=== PATIENT | male | born 1935 | race Caucasian/White ===

== ENCOUNTER 2016-12-01 16:42 | Emergency (ER) | payer MEDICARE, OTHER ==
[2016-12-01 16:48] VITALS: BP 137/60; PULSE 75; RESP 18; TEMP 98.1
[2016-12-01] MEDS ORDERED: TRAM50TA PO (16:59)
[2016-12-01] MEDS ORDERED: LISI-515 PO (16:59)
[2016-12-01] MEDS ORDERED: SODIUM CHLOR 0.9% 1000 ML INJ 1,000 ML IV ONE (17:00)
[2016-12-01] MEDS ORDERED: SODIUM CHLORIDE 0.9% FLUSH 10 ML FLUSH IVF PRN (17:00)
--- NOTE | 2016-12-01 17:02 | PD ---
HPI Chief Complaint: Syncope/Near-Syncope Time Seen by Provider: 17:02 Travel History International Travel<30 days: No Contact w/Intl Traveler<30days: No Traveled to known affect area: No History of Present Illness HPI 81-year-old male with history of hypertension, BPH, "possible bladder problems" presents to emergency department from [facility]. Patient was there for a cystoscopy by Dr. Craig. Patient had not eaten since before midnight. He states he is laying down and getting ready for the procedure. They had given him IV ampicillin. He states he began to tingle and feel lightheaded. There was brief loss of consciousness. Patient's blood pressure dropped and he became mildly tachycardic. Agent states initially following the event he didn' t feel well but now he has no complaints. Denies any chest pain or tightness. No difficulty breathing. No headache. No focal deficits or weakness. He has no other symptoms to report. PFSH Past Medical History Diminished Hearing: No Genitourinary: Yes (BPH, CHRONIC UTI) Hypertension: Yes Past Surgical History Cardiac Surgery: Yes (AORTIC VAVLE REPLACEMENT) Social History Alcohol Use: No Tobacco Use: No Substance Use: No Allergies-Medications (Allergen,Severity, Reaction): Coded Allergies: No Known Allergies (Unverified , 12/01/16) Reported Meds & Prescriptions Reported Meds & Active Scripts Active Reported Tramadol (Tramadol HCl) 50 Mg Tab 50 Mg PO Q6H PRN Lisinopril 20 Mg Tab 20 Mg PO DAILY Review of Systems Except as stated in HPI: all other systems reviewed are Neg Physical Exam Narrative GENERAL: Well-nourished elderly male patient, in no acute distress SKIN: Focused skin assessment warm/dry. HEAD: Atraumatic. Normocephalic. EYES: Pupils equal and round. No scleral icterus. No injection or drainage. ENT: No nasal bleeding or discharge. Mucous membranes pink and moist. NECK: Trachea midline. No JVD. CARDIOVASCULAR: Regular rate and rhythm. No murmur appreciated. RESPIRATORY: No accessory muscle use. Clear to auscultation. Breath sounds equal bilaterally. GASTROINTESTINAL: Abdomen soft, non-tender, nondistended. Hepatic and splenic margins not palpable. MUSCULOSKELETAL: No obvious deformities. No clubbing. No cyanosis. No edema. NEUROLOGICAL: Awake and alert. No obvious cranial nerve deficits. Motor grossly within normal limits. Normal speech. PSYCHIATRIC: Appropriate mood and affect; insight and judgment normal. Data Data Last Documented VS Vital Signs Date Time Temp Pulse Resp B/P Pulse Ox O2 Delivery O2 Flow Rate FiO2 12/01/16 18:50 66 152/70 77 153/70 176/76 12/01/16 18:48 16 96 12/01/16 17:18 Room Air 12/01/16 16:48 98.1 Orders Electrocardiogram (12/01/16 17:00) Basic Metabolic Panel (Bmp) (12/01/16 17:00) Complete Blood Count With Diff (12/01/16 17:00) Troponin I (12/01/16 17:00) Act Partial Throm Time (Ptt) (12/01/16 17:00) Prothrombin Time / Inr (Pt) (12/01/16 17:00) Chest, Single Ap (12/01/16 17:00) Ecg Monitoring (12/01/16 17:00) Iv Access Insert/Monitor (12/01/16 17:00) Oximetry (12/01/16 17:00) Sodium Chloride 0.9% Flush (Ns Flush) (12/01/16 17:00) Sodium Chlor 0.9% 1000 Ml Inj (Ns 1000 M (12/01/16 17:00) Orthostatic Vital Signs (12/01/16 17:00) Labs Laboratory Tests Test 12/01/16 17:00 White Blood Count 5.2 TH/MM3 Red Blood Count 3.99 MIL/MM3 Hemoglobin 12.8 GM/DL Hematocrit 37.7 % Mean Corpuscular Volume 94.4 FL Mean Corpuscular Hemoglobin 32.2 PG Mean Corpuscular Hemoglobin 34.1 % Concent Red Cell Distribution Width 13.1 % Platelet Count 192 TH/MM3 Mean Platelet Volume 8.3 FL Neutrophils (%) (Auto) 48.9 % Lymphocytes (%) (Auto) 42.8 % Monocytes (%) (Auto) 6.9 % Eosinophils (%) (Auto) 1.3 % Basophils (%) (Auto) 0.1 % Neutrophils # (Auto) 2.5 TH/MM3 Lymphocytes # (Auto) 2.2 TH/MM3 Monocytes # (Auto) 0.4 TH/MM3 Eosinophils # (Auto) 0.1 TH/MM3 Basophils # (Auto) 0.0 TH/MM3 CBC Comment AUTO DIFF Differential Total Cells 100 Counted Neutrophils % (Manual) 58 % Band Neutrophils % 3 % Lymphocytes % 34 % Monocytes % 5 % Neutrophils # (Manual) 3.2 TH/MM3 Differential Comment AUTO DIFF CONFIRMED Platelet Estimate NORMAL Platelet Morphology Comment NORMAL Ovalocytes 1+ Prothrombin Time 11.4 SEC Prothromb Time International 1.0 RATIO Ratio Activated Partial 22.6 SEC Thromboplast Time Sodium Level 141 MEQ/L Potassium Level 3.8 MEQ/L Chloride Level 107 MEQ/L Carbon Dioxide Level 27.5 MEQ/L Anion Gap 7 MEQ/L Blood Urea Nitrogen 28 MG/DL Creatinine 1.48 MG/DL Estimat Glomerular Filtration 34 ML/MIN Rate Random Glucose 207 MG/DL Calcium Level 9.2 MG/DL Troponin I 0.02 NG/ML MDM Medical Decision Making Medical Screen Exam Complete: Yes Emergency Medical Condition: Yes Medical Record Reviewed: Yes Differential Diagnosis Vasovagal response versus orthostatic hypotension versus anxiety versus syncope versus medication adverse effect versus cardiac etiology Narrative Course 81-year-old male presents to the emergency department following a syncopal episode prior to his procedure at [facility]. Patient here appears well. His vital signs are stable. He has no focal deficits or weakness. EKGs reviewed by my attending physician without acute abnormality identified. CBC is without acute concern. BMP is with BUN of 28, creatinine 1.48. Troponin is 0.02. Patient is given IV normal saline bolus. Patient is orthostatic negative. I discussed the patient my attending physician. I have offered to the patient admission for further evaluation of this episode. The patient states that he has had multiple visits with physicians prior to today's procedure and will have to have multiple physician visits after. He states that he feels well and would like to go home. I discussed this with my attending who agrees that if the patient is competent and has good follow-up, he can be discharged home. This is discussed with the patient. He states that he'll contact his primary care provider tomorrow. He agrees to return immediately with any acute worsening of symptoms. Diagnosis Primary Impression: Syncope Qualified Code: R55 - Syncope, unspecified syncope type Referrals: Primary Care Physician Urologist Patient Instructions: General Instructions, Syncope (ED) Additional Instructions: Follow-up with a primary care provider Continue medication as prescribed Return immediately with any acute worsening of symptoms Med/Other Pt SpecificInfo: No Change to Meds Disposition: 01 DISCHARGE HOME Condition: Stable Maureen Posadas Dec 01, 2016 17:02
[2016-12-01 17:18] VITALS: O2SAT 93
--- NOTE | 2016-12-01 17:22 | RADRPT ---
EXAM DATE/TIME: 12/01/2016 17:17 [facility] COMPARISON: No previous studies available for comparison. INDICATIONS : Syncopal episode today. MEDICAL HISTORY : Hypertension. SURGICAL HISTORY : Aortic valve replacement. ENCOUNTER: Initial ACUITY: 1 day PAIN SCORE: Non-responsive. LOCATION: Bilateral chest FINDINGS: Patient is rotated towards the right. No tortuosity descending thoracic aorta. Heart size upper haley its normal size. The lungs are symmetrically aerated and clear. Both hemidiaphragms are well deline ated. Evidence of prior median sternotomy. CONCLUSION: No focal infiltrates seen. No evidence of pneumothorax. Noel Yang MD on December 01, 2016 at 17:19 Board Certified Radiologist. This report was verified electronically.
[2016-12-01 17:37] LABS: AUTOMATED NEUTROPHIL # 2.5 TH/MM3 (1.8-7.7); BASOPHIL % 0.1 % (0.0-2.0); EOSINOPHIL # 0.1 TH/MM3 (0-0.4); EOSINOPHIL % 1.3 % (0.0-4.0); HEMATOCRIT 37.7 % (35.0-46.0); LYMPH % 42.8 % (9.0-44.0); LYMPHOCYTE # 2.2 TH/MM3 (1.0-4.8); MEAN CELL VOLUME 94.4 FL (80.0-100.0); MEAN CORPUSCULAR HEMOGLOBIN 32.2 PG (27.0-34.0); MEAN CORPUSCULAR HGB CONC 34.1 % (32.0-36.0); MONO % 6.9 % (0.0-8.0); NEUT % 48.9 % (16.0-70.0); PLATELET COUNT 192 TH/MM3 (150-450); RED BLOOD COUNT 3.99 MIL/MM3 (4.00-5.30); RED CELL DISTRIBUTION WIDTH 13.1 % (11.6-17.2); WHITE BLOOD COUNT 5.2 TH/MM3 (4.0-11.0)
[2016-12-01 17:42] LABS: APTT (PATIENT) 22.6 SEC (24.3-30.1); PROTHROMBIN TIME - PATIENT 11.4 SEC (9.8-11.6)
[2016-12-01 17:45] LABS: HEMO FLAGS AUTO DIFF
[2016-12-01 17:58] LABS: BICARBONATE 27.5 MEQ/L (21.0-32.0); POTASSIUM 3.8 MEQ/L (3.5-5.1)
[2016-12-01 18:23] LABS: BANDS 3 % (0-6); NEUTROPHIL # MANUAL DIFF 3.2 TH/MM3 (1.8-7.7); OVALOCYTES 1+ (NORMAL); PLATELET ESTIMATE SMEAR NORMAL (NORMAL); PLATELET MORPHOLOGY NORMAL (NORMAL); POLYS (SEG NEUTROPHILS) 58 % (16-70); SCAN/DIFF AUTO DIFF CONFIRMED; WBC DIFF SAMPLE 100
[2016-12-01 18:48] VITALS: BP 152/70; PULSE 77; RESP 16; O2SAT 96
[2016-12-01 18:50] VITALS: BP_SYST 152; BP_SYST 153; BP_SYST 176; BP_DIAS 70; BP_DIAS 76
--- NOTE | 2016-12-02 19:29 | EKG ---
Date Performed: 12/01/2016 Time Performed: 16:46:36 PTAGE: 81 years EKG: PROBABLE Sinus rhythm MARKED LEFT AXIS DEVIATION LEFT BUNDLE BRANCH BLOCK ABNORMAL ECG INTERPRETATION BASED ON A DEFAULT A GE OF 40 YEARS Compared to the PREVIOUS TRACING , LBBB is new DOCTOR: Chet Maddox Interpretating Date/Time 12/02/2016 19:28:34
== END 2016-12-01 19:39 | disposition home or self-care (01) ==
LOC: EDSEX 16:42 → NEPE 16:42
DX: R55 Syncope and collapse (principal); R94.31 Abnormal electrocardiogram [ECG] [EKG]; I10 Essential (primary) hypertension; Z98.890 Other specified postprocedural states; Z87.438 Personal history of other diseases of male genital organs; Z87.448 Personal history of other diseases of urinary system
CPT/HCPCS: 71010; 80048; 84484; 85025; 85610; 85730; 93005; 99285; J7030